=== PATIENT | female | born 1945 | race African-American/Black ===

== ENCOUNTER 2021-03-14 16:23 | Emergency (ER) | payer MEDICARE, BC ==
[~2021-03-14] VITALS: Ht 160 cm; Wt 79.3 kg
[2021-03-14 18:22] LABS: HEMATOCRIT 38.2 % (36.0-47.0); MEAN CORPUSCULAR HEMOGLOBIN 28.3 pg (27.0-33.0); MEAN CORPUSCULAR HGB CONC 31.4 g/dl (32.0-36.5); MEAN CORPUSCULAR VOLUME 90.1 fl (80.0-96.0); PLATELET COUNT, AUTOMATED 222 10^3/uL (150-450); RED BLOOD COUNT 4.24 10^6/uL (4.00-5.40); WHITE BLOOD COUNT 6.3 10^3/uL (4.0-10.0)
--- NOTE | 2021-03-14 18:25 | REPVR ---
PROCEDURE INFORMATION: Exam: CT Head Without Contrast Exam date and time: 03/14/2021 5:51 PM Age: 75 years old Clinical indication: Other: Ataxia TECHNIQUE: Imaging protocol: Computed tomography of the head without contrast. Radiation optimization: All CT scans at this facility use at least one of these dose optimization techniques: automated exposure control; mA and/or kV adjustment per patient size (includes targeted exams where dose is matched to clinical indication); or iterative reconstruction. COMPARISON: No relevant prior studies available. FINDINGS: Brain: Bilateral basal ganglia calcifications. Otherwise unremarkable. Cerebral ventricles: No ventriculomegaly. Paranasal sinuses: Visualized sinuses are unremarkable. No fluid levels. Mastoid air cells: Visualized mastoid air cells are well aerated. Bones/joints: Unremarkable. No acute fracture. Soft tissues: Unremarkable. IMPRESSION: No acute intracranial findings. Electronically signed by: Ranjith Monge On 03/14/2021 18:24:21 PM
[2021-03-14 20:15] VITALS: BP 160/86
[2021-03-14] MEDS ORDERED: HYDR-3490 PO (20:21)
== END 2021-03-14 21:02 | disposition home or self-care (01) ==
LOC: M ED 18:03
DX: R26.89 Other abnormalities of gait and mobility (principal); I10 Essential (primary) hypertension; Z79.899 Other long term (current) drug therapy; Z87.891 Personal history of nicotine dependence